=== PATIENT | female | born 1960 | race Caucasian/White ===

== ENCOUNTER 2017-10-05 10:33 | Inpatient (IN) | payer OTHER ==
[2017-08-23 09:32] VITALS: BMI 43.0
--- NOTE | 2017-08-23 10:12 | PAT Medication Instructions ---
Service Date Aug 23, 2017. Current Home Medication List Acetaminophen (Tylenol), 1,000 MG PO PRN Captopril (Capoten), 25 MG PO QAM Cyclosporine (Ophth) (Restasis), 1 DROP OP BID Diclofenac (Voltaren), 75 MG PO BID Levothyroxine Sodium (Synthroid), 225 MCG PO QAM Metformin Hcl (Glucophage), 500 MG PO BID Probiotic Product (Probiotic), 1 TAB PO QAM [Spironlactone Hctz], 1 TAB PO BID Medication Instructions For Your Scheduled Surgery - Check with surgeon for instructions: Diclofenac (Voltaren), 75 MG PO BID - Hold the following medications 48 hours prior to surgery: Metformin Hcl (Glucophage), 500 MG PO BID - Hold the following medications the morning of surgery: Captopril (Capoten), 25 MG PO QAM Probiotic Product (Probiotic), 1 TAB PO QAM [Spironlactone Hctz], 1 TAB PO BID - Take the following medications the morning of surgery with a sip of water: Levothyroxine Sodium (Synthroid), 225 MCG PO QAM Cyclosporine (Ophth) (Restasis), 1 DROP OP BID Acetaminophen (Tylenol), 1,000 MG PO PRN (if needed) - Take the following medications as scheduled the night before surgery: [Spironlactone Hctz], 1 TAB PO BID Cyclosporine (Ophth) (Restasis), 1 DROP OP BID Acetaminophen (Tylenol), 1,000 MG PO PRN (if needed) If you have any questions please call us at [phone] or [phone] or [phone]
--- NOTE | 2017-08-23 10:57 | DIAGNOSTIC IMAGING REPORT ---
CHEST PREADMISSION(PA/LAT) CLINICAL HISTORY: Preoperative chest COMPARISON STUDY: No previous studies for comparison. FINDINGS: The heart is mildly enlarged. There is mild interstitial thickening. There is no lobar consolidation. There are no pleural effusions.[ IMPRESSION: Cardiomegaly and mild interstitial thickening of uncertain chronicity. Electronically signed by: Milan Muhammad M.D. 08/23/2017 10:56 AM Dictated Date/Time: 08/23/2017 10:55 AM
[2017-08-23 11:25] LABS: BASO % 0.2 %; BASO ABS # 0.02 K/uL (0-0.2); COMPLETE YES; EOS % 1.4 %; HEMATOCRIT 37.9 % (37-47); IG% 0.3 %; LYMPH ABS # 1.83 K/uL (1.2-3.4); MEAN CELL VOLUME 87.1 fL (80-100); MEAN CORPUSCULAR HEMOGLOBIN 28.7 pg (25-34); MEAN PLATELET VOLUME 10.5 fL (7.4-10.4); MONO % 4.9 %; NEUT % 73.2 %; PLATELET COUNT 318 K/uL (130-400); RED BLOOD COUNT 4.35 M/uL (4.2-5.4); WHITE BLOOD COUNT 9.13 K/uL (4.8-10.8)
[2017-08-23 11:36] LABS: PROTHROMBIN TIME (PATIENT) 10.7 SECONDS (9.0-12.0)
[2017-08-23 11:37] LABS: ESTIMATED AVERAGE GLUCOSE 146 mg/dl; HA1C FLAG Normal (Normal)
[2017-08-23 11:38] LABS: BUN/CREATININE RATIO 28.4 (10-20); CALCIUM 9.6 mg/dl (8.5-10.1); CREATININE 0.64 mg/dl (0.60-1.20)
--- NOTE | 2017-10-01 22:40 | HISTORY & PHYSICAL EXAMINATION ---
DATE OF ADMISSION: 10/05/2017 CHIEF COMPLAINT: Bilateral knee pain and discomfort, left side greater than right. HISTORY OF PRESENT ILLNESS: A 57-year-old female who has been a long-term patient of mine who presents for surgical treatment of her left knee today. She has got very long history of bilateral knee pain and discomfort, left side greater than right. I have been seen over the years and put shots in her knees. This has become less successful over time. She has been putting off having her knees replaced, but feels like she really needs to do it. She has become more debilitated by her pain. She has pain with every step. Cannot walk any significant distance. PAST MEDICAL HISTORY: 1. Hypertension. 2. Sleep apnea with CPAP machine. 3. Hypothyroidism. 4. Obesity with a BMI of 43. PAST SURGICAL HISTORY: Includes: 1. Hernia repair. 2. . 3. Cholecystectomy. 4. Total hysterectomy. ALLERGIES: BACTRIM AND SULFA. CURRENT MEDICINES: Include: 1. Captopril 25 mg a day. 2. Synthroid 225 mcg a day. 3. Metformin 50 mg twice a day. 4. Voltaren 75 mg a day. 5. Restasis eyedrops twice a day. 6. Refresh eye drops once a day. 7. Spironolactone/hydrochlorothiazide 25/25 twice a day. SOCIAL HISTORY: A 57-year-old female. She is from [facility]. Does not smoke. No alcohol intake. FAMILY HISTORY: Significant for colon cancer, breast cancer. REVIEW OF SYSTEMS: Significant for diabetes. Denies any current chest pain or shortness of breath. No history of DVT or PE. PHYSICAL EXAMINATION: GENERAL: Reveals this is a healthy pleasant, middle-aged female. She looks to be in reasonably good health. HEENT: Benign. NECK: Supple. No lymphadenopathy. LUNGS: Clear to auscultation. HEART: Has a regular rate and rhythm. ABDOMEN: Soft, nontender, nondistended. EXTREMITIES: Grossly neurovascularly intact except as follows: Examination of both knees reveals the patient walks with a waddling gait. She has varus alignment of both knees with a varus thrust with weightbearing. Moderate soft tissue envelop bilaterally. She has got small knee effusions bilaterally. Range of motion about 5-115 and symmetric. No pain with hip motion on either side. X-RAYS: X-rays of both knees were reviewed. It shows advanced left bilateral knee DJD, left side a bit worse than the right. She has complete loss of her medial joint space. She has osteophytes of medial femoral condyle and medial tibial plateau. ASSESSMENT: A 57-year-old female with advanced bilateral knee degenerative joint disease, left side more symptomatic than the right. She has failed conservative treatment and would like to have her left knee replaced. PLAN: We will take her to the operating room and do a left total knee replacement. The risks and benefits of this procedure were explained to the patient including but not limited to DVT, PE, , infection, neurological injury, vascular injury, bleeding problem, pain, limited range of motion, stiffness, failure to relieve symptoms, incomplete relief of symptoms, need for further surgery in the future, fracture, leg length inequality, nerve palsy, etc. The patient understands and desires to proceed. Informed consent was obtained. We did talk about holding her metformin 2 days preop as well as the diclofenac. She will hold the captopril the morning of surgery. We will likely use insulin sliding scale coverage in the hospital. We did talk her about bringing her CPAP machine as well. She is planning to be discharged to home with home health likely. SHIRLEY
[2017-10-05] VITALS (9 sets, daily range): BP systolic 134–154; BP diastolic 75–100; PULSE 80–92; TEMP 36.4–36.8; O2SAT 94–97; Ht 165.1 cm; Wt 117.6 kg
[~2017-10-05] VITALS: Ht 165.1 cm; Wt 117.6 kg
[~2017-10-05 10:33] MED LIST: ACET-1256 PO; ACETAMINOPHEN 500 MG TAB PO SCH; BUPIVACAINE 0.25% 30 ML VIAL ONE; BUPIVACAINE 0.5 % 5 MG/1 ML PF 10ML VIAL ONE; BUPIVACAINE LIPOSOME 266 MG, BUPIVACAINE/EPINEPHRINE INJ 50 ML, SODIUM CHLORIDE 0.9% PF... INFIL SCH; CAPT1TAB38 PO; CEFAZOLIN 3000MG IV PUSH 15 ML IV SCH; CYCL0.052 OP; DICL-201 PO; FAMOTIDINE 20 MG TAB PO SCH; GABAPENTIN 300 MG CAP PO SCH; GLC/500 PO; LACTATED RINGER'S 1000ML 1,000 ML IV SCH; LACTATED RINGER'S 1000ML 500 ML IV ONE; LACTATED RINGER'S 1000ML IV SCH; LEVO200T PO; METOCLOPRAMIDE HCL 10 MG TAB PO SCH; MISCCAP80 PO; SCOPOLAMINE 1.5 MG TDSY TD SCH; SPIRONLACTONE HCTZ PO; TRANEXAMIC ACID INJ 1,000 MG in SYRINGE 0 ML IV SCH
--- NOTE | 2017-10-05 10:55 | History & Physical Bridge Note ---
H&P Re-Evaluation Bridge Note: I have examined the patient, reviewed the History & Physical and in the interval since the performance of the History & Physical I have noted the following changes of clinical significance: Patient would like right knee injected while under anesthesia. We will inject right knee in operating room.
[2017-10-05] MEDS ORDERED: ONDANSETRON INJ 2 MG/ML 2 ML VIAL IV PRN ×2 (11:15→15:30)
[2017-10-05] MEDS ORDERED: EpHEDrine SULFATE INJ 50 MG/ML AMP IV PRN (11:15)
[2017-10-05] MEDS ORDERED: ATROPINE SULFATE 0.1 MG/ML 5ML SYR IV PRN (11:15)
[2017-10-05] MEDS ORDERED: LIDOCAINE HCL 2% 2 ML VIAL (20MG/ML) ONE (12:35)
[2017-10-05] MEDS ORDERED: PROPOFOL IV EMULSION 10 MG/ML 20 ML VIAL IV ONE (12:35)
[2017-10-05] MEDS ORDERED: FENTANYL CITRATE INJ 50 MCG/1 ML 2 ML VIAL ONE (12:36)
[2017-10-05] MEDS ORDERED: MIDAZOLAM HCL 1 MG/ML 2ML VIAL ONE (12:36)
[2017-10-05] MEDS ORDERED: SODIUM CHLORIDE 0.9% PF 50 ML VIAL ONE (13:21)
[2017-10-05] MEDS ORDERED: BUPIVACAINE/EPINEPHRINE 0.25% 1:200,000 30 ML VIAL ONE (13:21)
[2017-10-05] MEDS ORDERED: BACITRACIN 50000 UNIT VIAL ONE (13:21)
[2017-10-05] MEDS ORDERED: BUPIVACAINE 0.5 % 5 MG/1 ML MPF 30ML VIAL ONE (13:22)
[2017-10-05] MEDS ORDERED: BUPIVACAINE LIPOSOME 1/3% 266 MG/20 ML VIAL INFIL ONE (13:22)
[2017-10-05] MEDS ORDERED: BUPIVACAINE 0.5 % 5 MG/1 ML MPF 30ML VIAL INFIL ONE (14:00)
[2017-10-05] MEDS ORDERED: BETAMETH SOD PHOS/ACETATE IA 6 MG/ML IM ONE (14:00)
[2017-10-05] MEDS ORDERED: KETAMINE HCL INJ 50 MG/ML 10 ML VIAL ONE (14:12)
[2017-10-05] MEDS ORDERED: ONDANSETRON INJ 2 MG/ML 2 ML VIAL ONE (14:36)
--- NOTE | 2017-10-05 15:25 | [facility] Post Operative Brief Note ---
Immediate Operative Summary Operative Date Oct 05, 2017. Pre-Operative Diagnosis Bilateral knee degenerative joint disease Post-Operative Diagnosis same as pre-operative Procedure(s) Performed Left Total Knee Arthroplasty and Right Knee Injection Surgeon Dr. Yusuf Ann Dbas Surgeon(s) SAYRA Toscano Estimated Blood Loss 50 ml Findings Bilateral Knee DJD Fluids (cc crystalloids) 1100 cc Specimens Permanent Specimen A: Left knee bone and tissue Drains None Anesthesia Spinal Complication(s) None Disposition Recovery Room / PACU
[2017-10-05] MEDS ORDERED: GLUCOSE 10 TABS/TUBE PO PRN (15:30)
[2017-10-05] MEDS ORDERED: MoRPHine SULFATE 2 MG/ML CARP IV PRN (15:30)
[2017-10-05] MEDS ORDERED: ALUMINUM/MAGNESIUM/SIMETH (MAALOX MAX) 30 ML UDC PO PRN (15:30)
[2017-10-05] MEDS ORDERED: DEXTROSE 50% 50 ML SYR IV PRN (15:30)
[2017-10-05] MEDS ORDERED: MAGNESIUM HYDROXIDE SUSP 30 ML UDC PO PRN (15:30)
[2017-10-05] MEDS ORDERED: BISACODYL 10 MG SUPP PR PRN (15:30)
[2017-10-05] MEDS ORDERED: GLUCOSE 40% GEL 15 GM TUBE PO PRN (15:30)
[2017-10-05] MEDS ORDERED: DiphenhydrAMINE HCL 50 MG/ML VIAL IV PRN (15:30)
[2017-10-05] MEDS ORDERED: METOCLOPRAMIDE HCL INJ 5 MG/ML 2 ML VIAL IV PRN (15:30)
[2017-10-05] MEDS ORDERED: ZOLPIDEM TARTRATE 5 MG TAB PO PRN (15:30)
[2017-10-05] MEDS ORDERED: GLUCAGON FOR INJ 1 MG VIAL SQ PRN (15:30)
--- NOTE | 2017-10-05 15:49 | DIAGNOSTIC IMAGING REPORT ---
L KNEE 1 OR 2 VIEWS ROUTINE HISTORY: 57 years-old Female PACU LT KNEE left knee arthroplasty. Degenerative joint disease. COMPARISON: Left knee radiographs 08/23/2017 TECHNIQUE: Portable AP and lateral views of the left knee FINDINGS: Postoperative changes compatible with left knee total joint arthroplasty and patellar resurfacing. No evidence of periprostatic fracture or malalignment. Ventral skin goyo are noted in addition to a surgical drain and expected postsurgical soft tissue swelling and deep tissue air. IMPRESSION: Status post left knee total joint arthroplasty and patellar resurfacing without complication. The above report was generated using voice recognition software. It may contain grammatical, syntax or spelling errors. Electronically signed by: Arnav Varela M.D. 10/05/2017 3:47 PM Dictated Date/Time: 10/05/2017 3:46 PM
[2017-10-05] MEDS ORDERED: RESTASIS~ORDER AWAITING ACTION SCH (16:00)
[2017-10-05] MEDS: CHECK SCOPOLAMINE PATCH PLACEMENT SCH ×2 (16:00→23:28)
--- NOTE | 2017-10-05 16:28 | Anesthesiology Progress Note ---
Anesthesia Post Op Note Date & Time Oct 05, 2017 at 16:28 Vital Signs Pain Intensity: 0 Vital Signs Past 12 Hours Date Time Temp Pulse Resp B/P (MAP) Pulse Ox O2 Delivery O2 Flow Rate FiO2 10/05/17 16:07 83 16 10/05/17 16:07 83 16 93 10/05/17 16:06 139/70 10/05/17 16:02 81 16 95 10/05/17 16:02 81 16 10/05/17 16:01 137/71 10/05/17 15:58 84 23 95 10/05/17 15:58 83 23 10/05/17 15:56 124/76 10/05/17 15:53 82 19 10/05/17 15:53 81 19 94 10/05/17 15:51 113/75 10/05/17 15:48 83 19 10/05/17 15:48 84 19 96 10/05/17 15:47 80 14 98 10/05/17 15:47 81 14 10/05/17 15:46 151/71 10/05/17 15:42 83 19 98 10/05/17 15:42 83 19 10/05/17 15:41 134/70 10/05/17 15:37 82 19 98 10/05/17 15:37 83 19 10/05/17 15:36 129/67 10/05/17 15:33 127/71 10/05/17 15:32 36.6 86 16 127/71 98 Oxymask 10 10/05/17 15:32 87 27 10/05/17 15:32 87 27 98 10/05/17 11:02 36.6 80 20 151/92 95 Room Air Notes Mental Status: alert / awake / arousable, participated in evaluation Pt Amnestic to Procedure: Yes Nausea / Vomiting: adequately controlled Pain: adequately controlled Airway Patency, RR, SpO2: stable & adequate BP & HR: stable & adequate Hydration State: stable & adequate Neuraxial Anesthesia: was administered, sensory block is resolving Anesthetic Complications: no major complications apparent
[2017-10-05] MEDS: FERROUS GLUCONATE 324 MG TAB PO SCH (17:55)
[2017-10-05] MEDS: SODIUM CHLORIDE 0.9% 1000ML 1,000 ML IV SCH ×2 (17:55→23:27)
[2017-10-05] MEDS: SPIRONOLACTONE/HCTZ 25-25 PO SCH (18:01)
[2017-10-05] MEDS: INSULIN HUMAN REGULAR SC SCH ×2 (18:04→22:00)
--- NOTE | 2017-10-05 18:06 | PROGRESS NOTE ---
DATE: 10/05/2017 SUBJECTIVE: A 57-year-old white female postop from a left knee replacement. She is doing well. Not having any pain in the hip. No significant sensory or motor function in the leg. No chest pain or shortness of breath. Not feeling dizzy or lightheaded. OBJECTIVE: VITAL SIGNS: Temperature is 36.5. Vital signs stable. GENERAL: Reveals a healthy, pleasant middle-aged female. She is sitting up in bed and talking to her daughter. She looks pretty comfortable. LUNGS: Clear to auscultation. HEART: Regular rate and rhythm. ABDOMEN: Soft, nontender, nondistended. EXTREMITIES: Grossly neurovascularly intact except as follows: Examination of the left leg reveals the dressing to be clean, dry and intact. Leg is well aligned. She has no significant motor or sensory function yet. She has brisk refill with good distal pulse. X-RAYS: X-rays of the left knee from recovery room reviewed. She has a left cemented posterior total knee arthroplasty. Components look to be in good position. No signs of problems. ASSESSMENT: A 57-year-old white female postop from a left knee replacement, doing well. Pain is controlled. Spinal still in effect. PLAN: 1. DVT prophylaxis including thigh-high TEDs, SCDs, and aspirin twice a day. 2. PT/OT. Weightbearing as tolerated. Left total knee protocol. 3. Pain control. Doing well with current pain regimen. 4. IV antibiotics x24 hours. 5. Disposition: Plan to discharge to home. She is going to do outpatient therapy once adequately recovered.
[2017-10-05] MEDS: KETOROLAC TROMETHAMINE 30 MG/ML VIAL IV. SCH ×2 (18:26→23:28)
[2017-10-05] MEDS: OXYCODONE HCL IR 5 MG TAB (IMMEDIATE RELEASE) PO PRN ×2 (18:38→23:38)
[2017-10-05] MEDS ORDERED: TRANEXAMIC ACID INJ 1,000 MG in SODIUM CHLORIDE 0.9% 100ML 100 ML IV SCH (19:30)
[2017-10-05] MEDS: TAPENTADOL ER 50 MG TABCR PO SCH (21:36)
[2017-10-05] MEDS: CycloSPORINE 0.05% 0.4 ML 30 UDV/BOX OP SCH (21:36)
[2017-10-05] MEDS: CEFAZOLIN IV 2,000 MG in SYRINGE 0 ML IV SCH (21:36)
[2017-10-05] MEDS: ASPIRIN 325 MG ECTAB PO SCH (21:37)
[2017-10-05] MEDS: ACETAMINOPHEN 500 MG TAB PO SCH (21:37)
[2017-10-05] MEDS: SENNA 8.6 MG TAB PO SCH (21:38)
[2017-10-05] MEDS: DOCUSATE SODIUM 100 MG CAP PO SCH (21:39)
[2017-10-05] MEDS ORDERED: NURSING VERBAL MED ORDER ONE (22:15)
--- NOTE | 2017-10-05 22:26 | OPERATIVE REPORT ---
DATE OF OPERATION: 10/05/2017 SURGEON: Dr. Yusuf Ann. SUPPLIER QUALITY ENGINEERING MANAGER: SAYRA Toscano PREOPERATIVE DIAGNOSIS: Bilateral knee degenerative joint disease. POSTOPERATIVE DIAGNOSIS: Same. PROCEDURE PERFORMED: 1. Right knee injection under anesthesia. 2. Left cemented posterior stabilized total knee arthroplasty. COMPLICATIONS: None. ESTIMATED BLOOD LOSS: 50 mL FLUID REPLACEMENT: 1400 mL crystalloid fluid replacement. TOURNIQUET TIME: 56 minutes at 300 mmHg. ANESTHESIA: Spinal with adductor canal block. DRAINS: None. SPECIMENS: Left knee sent for pathology. OPERATIVE INDICATIONS: The patient is a 57-year-old female, who has had a long history of bilateral knee pain and discomfort, which we treated over the years with conservative management. This became less successful over time. She became more and more debilitated by her disease. She was having trouble even getting around. She has a severe limp. She did not get any real response to injection treatment anymore. She elected to proceed with left total knee replacement and wanted her right knee injected under anesthesia. OPERATIVE FINDINGS: Operative findings revealed advanced left knee DJD. She had extensive grade 4 changes of the medial femoral condyle and medial tibial plateau. She had a varus deformity of the knee with a 10-degree flexion contracture and a [id number]-[id number] effusion. OPERATIVE IMPLANTS: Operative implants consisted of: 1. Biomet Vanguard size 65 left posterior stabilized femoral component. 2. Biomet size 71 tibial tray. 3. A 12-mm posterior stabilized polyethylene insert. 4. A 31 x 8 all poly patella. OPERATIVE PROCEDURE: The patient taken to the operating room, identified and placed on the operating table in supine position. All contact areas were appropriately padded. IV antibiotics were provided by anesthesia team. A spinal anesthetic and adductor canal block had been provided in the holding area. A Stone catheter was placed in a sterile fashion. A left thigh tourniquet was then placed. Attention was then drawn to the right knee. The right knee was prepped with alcohol, 2 mL of Celestone and 8 mL of Marcaine were injected in the right knee in a sterile fashion. A 4x4 gauze was then placed and a HELDER stocking was placed over the top of this. The left leg was then prepped and draped in the usual sterile fashion. The left leg was then elevated and exsanguinated using Esmarch and tourniquet was placed at 300 mmHg. An anterior approach of the left knee was then performed through a longitudinal incision centered over the patella. Sharp dissection was carried out through the subcutaneous tissues down to the level of the extensor mechanism. A medial parapatellar arthrotomy incision was made. Some subperiosteal dissection was carried out medially to the fat pad and resected from beneath the patellar tendon. The lateral patellofemoral ligament was released. The patella was everted and the knee was flexed. The osteophytes were taken off the distal femur. The ACL and PCL were then released from the distal femur and the tibia subluxated anteriorly. The external tibial alignment jig was then placed in the anterior face of the tibia and adjusted 14 mm medially. A proximal tibial cut was made to remove about a millimeter or two of bone from the most deficient aspect of the medial tibial plateau. Some osteophytes were taken off medial and posteromedially. The tibia size was a size 71. Attention was then drawn to the femur. The distal was entered with a sharp drill. The intramedullary canal was suctioned. A left 5 degree valgus cutting guide was placed. A distal cutting block was pinned in place. A distal femoral cut was made to take an additional 3 mm of bone off the distal femur. The femur was then sized to a size 65. We did downsize this slightly. The AP cutting block was pinned parallel to the epicondylar axis which was 6 degrees of external rotation. The anterior cut, anterior chamfer, posterior cut, posterior chamfer cuts were made. A box cutting guide was placed and adjusted slightly lateral and the box cut was made. The knee was flexed. The remnants of the medial and lateral menisci were excised. The osteophytes were taken off the posterior aspect of the femur. A trial femoral component was placed. The tibial tray was pinned in maximum external rotation and the drill and stem punch were used to create a defect in proximal tibia for the tibial tray. The knee was then trialed and the 12-mm insert fit most appropriately. Attention was then drawn to the patella. The patella was cleaned of all soft tissues. Patella thickness measured 20 mm in thickness, it was cut down to 13. It was sized to a size 31 patella. Lug holes were drilled for a 31 patella. Lateral osteophyte was removed. Patella button was placed. The knee was taken through range of motion and the patella tracked nicely with no thumbs test. Attention was then drawn toward placement of permanent components. All trial components were removed. A bone plug was placed in the distal femur to limit blood loss. A double batch of Palacos G cement was mixed. A left size 65 posterior stabilized femoral component, a size 71 tibial tray, a 12-mm posterior stabilized polyethylene insert, and a 31 x 8 all poly patella were then cemented in place. The knee was brought out into full extension until the cement hardened. A final cement check was then performed. Pericapsular tissues were injected with a total of 100 mL of a combination of 20 mL of Exparel, 30 mL of normal saline, 50 mL of 0.25% Marcaine with epinephrine. The patient did receive 1 gram of tranexamic acid. The tourniquet was then let down for a final target time of 56 minutes. Hemostasis was assured using electrocautery. The wound was once again irrigated. The extensor mechanism was then closed with a combination of #1 PDS suture and #1 Vicryl suture in a [id number] fashion. The extensor mechanism was checked and found to be intact. The subcutaneous tissues were then closed with 2-0 Dexon suture in a buried interrupted fashion. The skin was closed skin goyo. The leg was then cleaned and dried and a sterile dressing of Xeroform, 4 x 4, sterile cast padding and Kd bandage were applied. The patient then transferred to the recovery room in stable condition. The patient tolerated the procedure with no complications. All needle and sponge counts were correct at the end of the operation. I attest to the content of the Intraoperative Record and any orders documented therein. Any exceptions are noted below. MTDD
[2017-10-06] VITALS (7 sets, daily range): BP systolic 104–138; BP diastolic 73–87; PULSE 70–83; TEMP 36.5–36.9; O2SAT 94–96
[2017-10-06] MEDS: LEVOTHYROXINE 112 MCG TAB PO SCH (03:52)
[2017-10-06] MEDS: CEFAZOLIN IV 2,000 MG in SYRINGE 0 ML IV SCH (05:47)
[2017-10-06] MEDS: KETOROLAC TROMETHAMINE 30 MG/ML VIAL IV. SCH ×3 (05:49→17:26)
[2017-10-06] MEDS: ACETAMINOPHEN 500 MG TAB PO SCH ×3 (05:50→21:58)
[2017-10-06] MEDS: CAPTOPRIL 25 MG TAB PO SCH (05:50)
[2017-10-06] MEDS: SODIUM CHLORIDE 0.9% 1000ML 1,000 ML IV SCH ×2 (05:53→12:47)
[2017-10-06] MEDS ORDERED: LEVOTHYROXINE 112 MCG TAB PO SCH (06:00)
[2017-10-06] MEDS ORDERED: MORP-157 PO (06:51)
[2017-10-06] MEDS ORDERED: FRRG PO (06:51)
[2017-10-06] MEDS ORDERED: ASPEC325 PO (06:51)
[2017-10-06] MEDS ORDERED: RXC5 PO (06:51)
[2017-10-06] MEDS ORDERED: ACET-24 PO (06:51)
[2017-10-06] MEDS ORDERED: ONDA4TAB65 PO (06:51)
--- NOTE | 2017-10-06 06:53 | Discharge Instructions ---
Discharge Instructions Date of Service Oct 06, 2017. Admission Reason for Admission: Left Knee Degenerative Joint Disease Discharge Discharge Diagnosis / Problem: Left Knee Replacement Discharge Goals Goal(s): Decrease discomfort, Improve function, Increase independence, Improve disease control Activity Recommendations Activity Limitations: per Instructions/Follow-up section Weightbearing Status: Left weightbearing . Instructions / Follow-Up Instructions / Follow-Up ACTIVITY RECOMMENDATIONS: Physical Therapy: * You will go to physical therapy three times each week for four to six weeks after your surgery in order to regain your knee range of motion and to retrain your knee to work properly. * It is just as important to make sure you are getting your knee perfectly straight as it is to regain your knee bend. * Taking a pain pill an hour before therapy can help you have a more productive and comfortable therapy session. Home Exercise: * You were shown a series of exercises (heel props, heel slides, etc.) in the hospital. Do these exercises three to four times each day including the exercises you were shown in physical therapy. Walking: * Get up and walk several times each day. For the first four weeks, try not to stand or walk for more than one hour at a time. If you do stand or walk for more than one hour, you will not hurt anything, but your knee and leg will likely swell. * As you feel comfortable, you may change from the walker or crutches to a cane and then to independent walking. MEDICATIONS: New Medicine: * You will likely be taking one or more of these medications: 1. MS Contin - A long-acting pain medication. Take 1 tablet twice a day for the first ten days to decrease your baseline level of pain. 2. Oxycodone - A quick and shorter-acting pain medication. Take one to two tablets every four to six hours to lessen your pain. 3. Iron Sulfate - Take three times each day for the month after surgery to help you replace the blood lost during surgery. 4. Aspirin - Thins your blood to lessen the chance of forming a blood clot. * The most common side effects of pain medicine and iron are nausea and constipation. If nausea or constipation is too much of a problem or if you have any questions about your new medicines or doses, call [facility] at [phone]. We will try to help you manage these issues. VERY IMPORTANT TO READ AND REVIEW" Pain: * The immediate post-operative period after knee replacement surgery is often quite painful. * You are given a prescription for pain medicine. You should take it, as directed, when you need it, especially before physical therapy and before going to bed. Pain that interferes with sleep is very common and can last several months. * You will likely need pain medicine for the first four to six weeks. It will not stop all of the pain. The pain will lessen and as you feel better, you may change to milder pain medicine such as Tylenol. * The most common side effects of pain medicine are nausea and constipation, so don't take more than you need. SPECIAL CARE INSTRUCTIONS: TEDs/Elastic Stockings: * The white elastic stockings help limit swelling and prevent blood clots from forming in your legs. The more you wear them, the more they work. * Wear them for six weeks after knee replacement surgery and four weeks after partial knee replacement. Prevention of Infection: * Take antibiotics one hour before any dental cleaning, dental work, urological procedure, gastrointestinal procedure or any invasive surgery in order to prevent your new joint from getting infected. * You may get the antibiotics from the doctor performing the procedure or you may call our office at before and we will call in a prescription to the pharmacy of your choice. Things to Watch For: * Drainage from the incision site that occurs more than one week after your surgery. * Severely increased knee/leg pain or swelling. * Increased redness at the incision site. * Fever above 102 degrees Fahrenheit. * Unusual chest pain or shortness of breath. * Unusual pain or burning with urination. Call [facility] at with any of the above problems or if you have any questions about your medicines or recovery. FOLLOW UP VISIT: Make an appointment to see your doctor for approximately two weeks after surgery for a progress check and staple removal by calling the office at . Current Hospital Diet Patient's current hospital diet: Diabetes Type 2 Diet Discharge Diet Recommended Diet: Diabetes Type 2 Diet Procedures Procedures Performed: Left Total Knee Arthroplasty and Right Knee Injection Pending Studies Studies pending at discharge: no Laboratory Results Hemoglobin A1c Test 08/23/17 10:25 Range/Units Estimated Average Glucose 146 mg/dl Hemoglobin A1c 6.7 H 4.5-5.6 % Medical Emergencies . Who to Call and When: Medical Emergencies: If at any time you feel your situation is an emergency, please call 911 immediately. . Non-Emergent Contact Non-Emergency issues call your: Surgeon . "Provider Documentation" section prepared by Yusuf Ann. . VTE Core Measure Inpt VTE Proph given/why not?: Other Anticoagulation, T.E.D. Stockings, SCD's
[2017-10-06 06:54] LABS: HEMATOCRIT 35.6 % (37-47); MEAN CELL VOLUME 86.2 fL (80-100); MEAN CORPUSCULAR HEMOGLOBIN 29.3 pg (25-34); MEAN PLATELET VOLUME 9.4 fL (7.4-10.4); PLATELET COUNT 318 K/uL (130-400); RED BLOOD COUNT 4.13 M/uL (4.2-5.4); WHITE BLOOD COUNT 15.97 K/uL (4.8-10.8)
[2017-10-06 07:22] LABS: BUN/CREATININE RATIO 29.2 (10-20); CALCIUM 8.6 mg/dl (8.5-10.1); CREATININE 0.77 mg/dl (0.60-1.20); POTASSIUM 3.8 mmol/L (3.5-5.1)
[2017-10-06] MEDS ORDERED: INFLUENZA VIRUS QUAD VACCINE 0.5 ML SYR IM. ONE (08:00)
[2017-10-06] MEDS ORDERED: INFLUENZA ADMINISTRATION CHARGE ONE (08:00)
[2017-10-06] MEDS: CHECK SCOPOLAMINE PATCH PLACEMENT SCH ×2 (08:03→15:32)
[2017-10-06] MEDS: INSULIN HUMAN REGULAR SC SCH ×4 (08:10→21:03)
[2017-10-06] MEDS: SPIRONOLACTONE/HCTZ 25-25 PO SCH ×2 (08:15→17:26)
[2017-10-06] MEDS: FERROUS GLUCONATE 324 MG TAB PO SCH ×3 (08:15→17:26)
[2017-10-06] MEDS: CycloSPORINE 0.05% 0.4 ML 30 UDV/BOX OP SCH ×2 (08:16→21:01)
[2017-10-06] MEDS: ASPIRIN 325 MG ECTAB PO SCH ×2 (08:16→21:00)
[2017-10-06] MEDS: DOCUSATE SODIUM 100 MG CAP PO SCH ×2 (08:16→21:00)
[2017-10-06] MEDS: TAPENTADOL ER 50 MG TABCR PO SCH ×2 (08:17→21:01)
[2017-10-06] MEDS: MULTIVITAMIN TAB PO SCH (08:17)
[2017-10-06] MEDS: PANTOprazole SOD 40 MG TAB PO SCH (08:18)
[2017-10-06] MEDS ORDERED: NON-FORMULARY MEDICATION (Probiotic Product (Probiotic) 1 TAB) PO SCH (09:00)
[2017-10-06] MEDS ORDERED: CAPTOPRIL 25 MG TAB PO SCH (09:00)
[2017-10-06] MEDS: OXYCODONE HCL IR 5 MG TAB (IMMEDIATE RELEASE) PO PRN ×3 (09:43→19:23)
--- NOTE | 2017-10-06 13:21 | Anesthesiology Progress Note ---
Anesthesia Post Op Note Date & Time Oct 06, 2017 at 13:20 Vital Signs Vital Signs Past 12 Hours Date Time Temp Pulse Resp B/P (MAP) Pulse Ox O2 Delivery O2 Flow Rate FiO2 10/06/17 12:01 36.9 73 18 133/86 (102) 96 Room Air 10/06/17 09:44 94 Room Air 10/06/17 08:00 36.7 70 16 104/73 (83) 94 Room Air 10/06/17 07:38 Room Air 10/06/17 03:06 36.5 78 14 138/87 (104) 94 Room Air Notes Mental Status: alert / awake / arousable, participated in evaluation Pt Amnestic to Procedure: Yes Nausea / Vomiting: adequately controlled Pain: adequately controlled Airway Patency, RR, SpO2: stable & adequate BP & HR: stable & adequate Hydration State: stable & adequate Neuraxial Anesthesia: sensory block resolved Anesthetic Complications: no major complications apparent
--- NOTE | 2017-10-06 14:20 | PROGRESS NOTE ---
DATE: 10/06/2017 SUBJECTIVE: A 57-year-old white female postop day 1 from a left knee replacement and a right knee injection. She is doing pretty well. Pain is very controlled in bed. She rates it about 4 at worst. When she is walking, she says it is 15/10. No chest pain or shortness of breath. Not feeling dizzy or lightheaded. OBJECTIVE: VITAL SIGNS: Temperature is 36.9. Vital signs stable. GENERAL: Physical examination reveals a pleasant, middle-aged female. She is sitting up in bed and talking to her family. She looks pretty comfortable. EXTREMITIES: Examination of left leg reveals the dressing to be in place. A little bit of bloody drainage on the dressing. She can dorsiflex and plantarflex her foot appropriately. She is neurologically intact. Good distal pulses. LABORATORY DATA: Hemoglobin 12.1, hematocrit 35.6, and white cell count 15.97. Electrolytes are stable. ASSESSMENT: A 57-year-old white female, diabetic postop day 1 from a left knee replacement and doing pretty well. Pain is reasonably well controlled. She is neurologically intact. The block is worn off. PLAN: 1. DVT prophylaxis including thigh-high TEDs, SCDs, and aspirin twice a day. 2. PT/OT. She can weightbear as tolerated. Left total knee protocol. 3. Pain control. Doing reasonably well with current pain regimen. 4. Diabetes management. She should continue insulin sliding scale coverage. 5. Disposition: She is planning to be discharged home and do outpatient therapy once adequately recovered. SHIRLEY
[2017-10-06] MEDS: SENNA 8.6 MG TAB PO SCH (21:00)
[2017-10-07] MEDS: KETOROLAC TROMETHAMINE 30 MG/ML VIAL IV. SCH ×4 (00:32→14:12)
[2017-10-07] MEDS: LEVOTHYROXINE 112 MCG TAB PO SCH (03:06)
[2017-10-07] MEDS: ACETAMINOPHEN 500 MG TAB PO SCH ×2 (06:29→14:12)
[2017-10-07] MEDS: CAPTOPRIL 25 MG TAB PO SCH (06:30)
[2017-10-07 06:34] VITALS: BP 165/104
[2017-10-07 07:16] VITALS: BP 131/86; PULSE 74; TEMP 36.5; O2SAT 96
--- NOTE | 2017-10-07 07:20 | PROGRESS NOTE ---
DATE: 10/07/2017 SUBJECTIVE: A 57-year-old white female postop day 2 from a left knee replacement and right knee injection. She is doing well. Pain seems to be better today. No chest pain or shortness of breath. Not feeling dizzy or lightheaded. OBJECTIVE: VITAL SIGNS: Temperature is 36.6. Vital signs stable. GENERAL: Reveals a pleasant, middle-aged female. She is sitting up at her bedside chair and looks pretty comfortable. EXTREMITIES: Examination of the left leg reveals the dressing to be clean, dry and intact. Minimal drainage. Calf is soft and supple. She is neurologically intact. ASSESSMENT: A 57-year-old white female postop day 2 from a left knee replacement, doing pretty well. PLAN: 1. DVT prophylaxis including thigh-high TEDs, SCDs, and aspirin twice a day. 2. PT/OT. Weight bear as tolerated. Left total knee protocol. 3. Pain control. Doing well with current pain regimen. 4. Disposition: Plan to discharge to home. She is going to do outpatient therapy.
[2017-10-07] MEDS: CHECK SCOPOLAMINE PATCH PLACEMENT SCH ×2 (08:15)
[2017-10-07] MEDS: OXYCODONE HCL IR 5 MG TAB (IMMEDIATE RELEASE) PO PRN ×2 (08:22→15:19)
[2017-10-07] MEDS: TAPENTADOL ER 50 MG TABCR PO SCH (08:22)
[2017-10-07] MEDS: FERROUS GLUCONATE 324 MG TAB PO SCH ×2 (08:23→14:05)
[2017-10-07] MEDS: MULTIVITAMIN TAB PO SCH (08:23)
[2017-10-07] MEDS: PANTOprazole SOD 40 MG TAB PO SCH (08:23)
[2017-10-07] MEDS: CycloSPORINE 0.05% 0.4 ML 30 UDV/BOX OP SCH (08:24)
[2017-10-07] MEDS: INSULIN HUMAN REGULAR SC SCH ×2 (08:30→12:00)
[2017-10-07] MEDS: DOCUSATE SODIUM 100 MG CAP PO SCH (08:31)
[2017-10-07 08:56] VITALS: BP 129/71; PULSE 69
[2017-10-07 09:57] VITALS: BP 129/71; PULSE 69; TEMP 36.5; O2SAT 96
[2017-10-07] MEDS: SPIRONOLACTONE/HCTZ 25-25 PO SCH (10:25)
[2017-10-07] MEDS: ASPIRIN 325 MG ECTAB PO SCH (10:26)
== END 2017-10-07 16:00 | disposition home or self-care (01) | DRG 470 ==
LOC: C.ACU 10:33 → C.3E 10:45 → ENRESERV 15:45
PROVIDERS: ADMIT Orthopaedic Surgery Sports Medicine; ATTEND Orthopaedic Surgery Sports Medicine
PROC: 3E0U3BZ Introduction of Anesthetic Agent into Joints, Percutaneous Approach (ICD-10-PCS; principal; 2017-10-05 13:00)
PROC: 0SRD0J9 Replacement of Left Knee Joint with Synthetic Substitute, Cemented, Open Approach (ICD-10-PCS; principal; 2017-10-05 13:00)
DX: M17.0 Bilateral primary osteoarthritis of knee (principal); Z68.41 Body mass index [BMI] 40.0-44.9, adult; I10 Essential (primary) hypertension; E03.9 Hypothyroidism, unspecified; E66.9 Obesity, unspecified; G47.30 Sleep apnea, unspecified; E11.9 Type 2 diabetes mellitus without complications; Z79.84 Long term (current) use of oral hypoglycemic drugs; Z79.899 Other long term (current) drug therapy

== ENCOUNTER 2018-02-15 09:08 | Inpatient (IN) | payer OTHER ==
[2017-12-21 15:45] VITALS: Ht 165.1 cm; Wt 117.6 kg
--- NOTE | 2018-02-11 20:13 | HISTORY & PHYSICAL EXAMINATION ---
DATE OF ADMISSION: 02/15/2018 CHIEF COMPLAINT: Right knee pain. HISTORY OF PRESENT ILLNESS: A 57-year-old female who presents for surgical treatment of her right knee. She has a long history of bilateral knee pain and discomfort. She describes it has gotten worse over the past 10 years. She underwent a left knee replacement about 4 months ago and has done well from this. She has had excellent pain relief. She would like to have her right knee fixed. She continues to be debilitated by pain. She cannot walk because of her right knee. She has had shots in the knee initially but has not had any recently as they do not seem to help. PAST MEDICAL HISTORY: 1. Hypertension. 2. Sleep apnea, on CPAP machine. 3. Hypothyroidism. 4. Obesity with BMI of 43. PAST SURGICAL HISTORY: Include 1. Hernia repair. 2. . 3. Cholecystectomy. 4. Total hysterectomy. 5. Left total knee replacement done on October 05, 2017. ALLERGIES: BACTRIM WHICH CAUSED HIVES. SULFA CAUSES NAUSEA. MEDICATIONS: Current medications include 1. Captopril 25 mg a day. 2. Synthroid 225 mcg a day. 3. Metformin 50 mg twice a day. 4. Voltaren 75 mg twice a day. 5. Restasis eyedrops. 6. RepHresh Pro once a day. 7. Spironolactone/hydrochlorothiazide 25/25 twice a day. SOCIAL HISTORY: A 57-year-old female patient from [place]. She does not smoke. No alcohol intake. FAMILY HISTORY: Significant for colon cancer and breast cancer. REVIEW OF SYSTEMS: Significant for diabetes. Denies any chest pain, no shortness of breath. No history of DVT or PE. Her hemoglobin A1c is 6.7. No dysuria. PHYSICAL EXAMINATION: GENERAL: Exam shows pleasant middle-aged female, looks to be in reasonably good health. HEENT: Benign. NECK: Supple. No lymphadenopathy. LUNGS: Clear to auscultation. CARDIOVASCULAR: Heart has a regular rate and rhythm. ABDOMEN: Soft, nontender, nondistended. EXTREMITIES: Grossly neurovascularly intact except as follows: Examination of both knees reveals patient walks independently. Examination of the right knee reveals slight varus alignment. Moderate to large soft tissue envelope. Range of motion is 5 to 110. Pretty stiff knee. No instability. No pain with hip motion. Examination of the left knee reveals a well-healed incision. Knee alignment is anatomic. Range of motion is 0 to 110. No instability. IMAGING: X-ray of the right knee revealed advanced right knee DJD. She has complete loss of her medial joint space. She has subchondral sclerosis. She has tricompartment disease. ASSESSMENT: A 57-year-old white female, 4 months out from left knee replacement with advanced right knee degenerative joint disease. She has failed conservative treatment. She is happy with her left knee and would like to have her right knee replaced. PLAN: We will take her to the operating room for right total knee replacement. The risks and benefits of this procedure were explained to the patient that include but not limited to DVT, PE, , infection, neurological injury, vascular injury, bleeding, pain, limited range of motion, stiffness, failure to relieve symptoms, incomplete relief of symptoms, need for further surgery in the future, fracture, leg length inequality, nerve palsy, etc. The patient understands and desires to proceed. Informed consent was obtained. She will bring her CPAP machine to the hospital. She will have to hold her captopril on the morning of surgery and the metformin as well. She was able to be discharged to home and did outpatient therapy last time. Will plan on similar plan.
[2018-02-15] VITALS (7 sets, daily range): BP systolic 117–165; BP diastolic 67–99; PULSE 9–91; TEMP 36.4–36.8; O2SAT 95–100
[~2018-02-15] VITALS: Ht 165.1 cm; Wt 117.6 kg
[~2018-02-15 09:08] MED LIST changes: -ACET-1256 PO; +ATROPINE SULFATE 0.1 MG/ML 5ML SYR IV PRN; +CEFAZOLIN 2000MG IV PUSH 15 ML IV SCH; -CEFAZOLIN 3000MG IV PUSH 15 ML IV SCH; +CHOL1000 PO; +EpHEDrine SULFATE INJ 50 MG/ML AMP IV PRN; +FRRS300 PO; -GABAPENTIN 300 MG CAP PO SCH; -LACTATED RINGER'S 1000ML 500 ML IV ONE; +ONDANSETRON INJ 2 MG/ML 2 ML VIAL IV PRN; -TRANEXAMIC ACID INJ 1,000 MG in SYRINGE 0 ML IV SCH; +TRANEXAMIC ACID INJ 1,000 MG x 1 Bag Intra-Op IV SCH
[2018-02-15] MEDS ORDERED: MIDAZOLAM HCL 1 MG/ML 2ML VIAL ONE (09:27)
[2018-02-15] MEDS ORDERED: SODIUM CHLORIDE 0.9% PF 50 ML VIAL ONE (10:23)
[2018-02-15] MEDS ORDERED: BACITRACIN 50000 UNIT VIAL ONE (10:23)
[2018-02-15] MEDS ORDERED: BUPIVACAINE LIPOSOME 1/3% 266 MG/20 ML VIAL INFIL ONE (10:24)
[2018-02-15] MEDS ORDERED: EpINEphrine INJ 1MG/ML AMP 1 MG/ML AMP ONE (10:25)
[2018-02-15] MEDS ORDERED: BUPIVACAINE 0.25% 30 ML VIAL ONE ×2 (10:25→11:07)
[2018-02-15] MEDS ORDERED: VANCOMYCIN HCL 1000MG/20ML VIAL ONE (10:26)
--- NOTE | 2018-02-15 11:07 | History & Physical Bridge Note ---
H&P Re-Evaluation Bridge Note: I have examined the patient, reviewed the History & Physical and in the interval since the performance of the History & Physical I have noted the following changes of clinical significance: No changes noted
[2018-02-15] MEDS ORDERED: ONDANSETRON INJ 2 MG/ML 2 ML VIAL ONE (11:51)
[2018-02-15] MEDS ORDERED: LIDOCAINE HCL 2% 2 ML VIAL (20MG/ML) ONE (11:51)
[2018-02-15] MEDS ORDERED: PROPOFOL IV EMULSION 10 MG/ML 20 ML VIAL IV ONE (11:51)
--- NOTE | 2018-02-15 12:59 | [facility] Post Operative Brief Note ---
Immediate Operative Summary Operative Date Feb 15, 2018. Pre-Operative Diagnosis Advanced right knee degenerative joint disease Post-Operative Diagnosis Same as preop Procedure(s) Performed Right total knee arthroplasty Surgeon Dr. Ann Grain Shipper Surgeon(s) Aubrie Lara PA-C Estimated Blood Loss 50 cc Findings Consistent with Post-Op Diagnosis Fluids (cc crystalloids) 1000 cc Specimens A: right knee bone and tissue Drains None Anesthesia Type MAC Spinal Regional Complication(s) none Disposition Accompanied Pt To Recover: no Disposition: Recovery Room / PACU
[2018-02-15] MEDS ORDERED: ZOLPIDEM TARTRATE 5 MG TAB PO PRN (13:00)
[2018-02-15] MEDS ORDERED: BISACODYL 10 MG SUPP PR PRN (13:00)
[2018-02-15] MEDS ORDERED: GLUCOSE 10 TABS/TUBE PO PRN (13:00)
[2018-02-15] MEDS ORDERED: ONDANSETRON INJ 2 MG/ML 2 ML VIAL IV PRN (13:00)
[2018-02-15] MEDS ORDERED: METOCLOPRAMIDE HCL INJ 5 MG/ML 2 ML VIAL IV PRN (13:00)
[2018-02-15] MEDS ORDERED: DEXTROSE 50% 50 ML SYR IV PRN (13:00)
[2018-02-15] MEDS ORDERED: DiphenhydrAMINE HCL 50 MG/ML VIAL IV PRN (13:00)
[2018-02-15] MEDS ORDERED: ALUMINUM/MAGNESIUM/SIMETH (MAALOX MAX) 30 ML UDC PO PRN (13:00)
[2018-02-15] MEDS ORDERED: MAGNESIUM HYDROXIDE SUSP 30 ML UDC PO PRN (13:00)
[2018-02-15] MEDS ORDERED: SILVER SULFADIAZINE 1% CR 50 GM JAR EXT PRN (13:00)
[2018-02-15] MEDS ORDERED: GLUCOSE 40% GEL 15 GM TUBE PO PRN (13:00)
[2018-02-15] MEDS ORDERED: GLUCAGON FOR INJ 1 MG VIAL SQ PRN (13:00)
--- NOTE | 2018-02-15 13:50 | DIAGNOSTIC IMAGING REPORT ---
R KNEE 1 OR 2 VIEWS ROUTINE CLINICAL HISTORY: Postoperative evaluation. Right knee degenerative joint disease. COMPARISON: Right knee radiographs February 12, 2018 FINDINGS: Alignment of the total right knee arthroplasty is anatomic. There is no periprosthetic fracture or unexpected radiopaque foreign body. Skin goyo are present. IMPRESSION: Expected findings following total right knee arthroplasty. Electronically signed by: Sunny Seth M.D. 02/15/2018 1:49 PM Dictated Date/Time: 02/15/2018 1:48 PM
--- NOTE | 2018-02-15 14:14 | Anesthesiology Progress Note ---
Anesthesia Post Op Note Date & Time Feb 15, 2018 at 14:13 Vital Signs Pain Intensity: 0 Vital Signs Past 12 Hours Date Time Temp Pulse Resp B/P (MAP) Pulse Ox O2 Delivery O2 Flow Rate FiO2 02/15/18 14:11 116/67 02/15/18 14:07 80 17 02/15/18 14:07 80 17 95 02/15/18 14:06 116/63 02/15/18 14:02 80 18 96 02/15/18 14:02 80 18 02/15/18 14:01 80 20 116/67 97 02/15/18 14:01 80 20 02/15/18 13:56 84 16 109/70 95 02/15/18 13:56 83 16 02/15/18 13:51 78 16 114/66 96 02/15/18 13:51 77 16 02/15/18 13:46 77 17 02/15/18 13:46 77 17 117/72 96 02/15/18 13:41 77 22 02/15/18 13:41 78 22 123/73 98 02/15/18 13:36 76 22 112/66 97 02/15/18 13:36 76 22 02/15/18 13:31 77 21 122/67 96 02/15/18 13:31 78 21 02/15/18 13:30 76 18 02/15/18 13:30 76 18 99 02/15/18 13:26 120/74 02/15/18 13:25 76 18 100 02/15/18 13:25 76 18 02/15/18 13:21 123/69 02/15/18 13:20 76 20 100 02/15/18 13:20 77 20 02/15/18 13:16 114/70 02/15/18 13:15 78 17 100 02/15/18 13:15 78 17 02/15/18 13:11 117/70 02/15/18 13:10 81 18 02/15/18 13:10 81 18 100 02/15/18 13:06 109/65 02/15/18 13:05 80 27 02/15/18 13:05 80 27 100 02/15/18 13:05 36.3 78 18 109/65 (74) 100 Room Air 10 02/15/18 09:40 36.4 9 18 165/99 96 Room Air Notes Mental Status: alert / awake / arousable, participated in evaluation Nausea / Vomiting: adequately controlled Pain: adequately controlled Airway Patency, RR, SpO2: stable & adequate BP & HR: stable & adequate Hydration State: stable & adequate Neuraxial Anesthesia: was administered, sensory block is resolving Anesthetic Complications: no major complications apparent
[2018-02-15] MEDS ORDERED: NURSING VERBAL MED ORDER ONE (15:30)
[2018-02-15] MEDS ORDERED: RESTASIS: ORDER AWAITING ACTION SCH (16:00)
[2018-02-15] MEDS: CHECK SCOPOLAMINE PATCH PLACEMENT SCH (16:13)
[2018-02-15] MEDS: MoRPHine SULFATE 2 MG/ML CARP IV PRN ×2 (16:14→17:50)
[2018-02-15] MEDS: OXYCODONE HCL IR 5 MG TAB (IMMEDIATE RELEASE) PO PRN ×2 (16:59→21:14)
[2018-02-15 17:41] LABS: CREATININE 0.71 mg/dl (0.60-1.20)
[2018-02-15] MEDS: SPIRONOLACTONE/HCTZ 25-25 PO SCH (17:54)
[2018-02-15] MEDS: FERROUS GLUCONATE 324 MG TAB PO SCH (17:54)
[2018-02-15] MEDS: INSULIN ASPART 100 UNITS/ML 3 ML PEN SC SCH ×2 (17:59→21:35)
[2018-02-15] MEDS: KETOROLAC TROMETHAMINE 30 MG/ML VIAL IV. SCH (18:00)
[2018-02-15] MEDS ORDERED: TRANEXAMIC ACID INJ 1,000 MG in SODIUM CHLORIDE 0.9% 100ML 100 ML IV SCH (19:00)
--- NOTE | 2018-02-15 19:21 | OPERATIVE REPORT ---
DATE OF OPERATION: 02/15/2018 SURGEON: Yusuf Ann MD. SLITTER OPERATOR: SAYRA Toscano. PREOPERATIVE DIAGNOSIS: Right knee degenerative joint disease. POSTOPERATIVE DIAGNOSIS: Right knee degenerative joint disease. PROCEDURE PERFORMED: Right cemented posterior stabilized total knee arthroplasty. COMPLICATIONS: None. ESTIMATED BLOOD LOSS: 50 mL. FLUID REPLACEMENT: 1000 mL plus crystalloid fluid replacement. TOURNIQUET TIME: 50 minutes at 300 mmHg. ANESTHESIA: Spinal with adductor canal block. DRAINS: None. SPECIMENS: Right knee sent for pathology. OPERATIVE INDICATIONS: Patient is a 57-year-old female who has had a long history of bilateral knee pain and discomfort that has become unresponsive to conservative treatment. She really had an arthritic metabolic syndrome with severe obesity as well. She has been through extensive conservative treatment over the past 10 years which has been unsuccessful. She underwent a left knee replacement several months ago and has done extremely well and had been additionally elected to proceed with right total knee arthroplasty. OPERATIVE FINDINGS: Operative findings revealed advanced right knee DJD. She had extensive grade 4 changes of medial femoral condyle and medial tibial plateau as well as the trochlea. The lateral compartment was fairly well preserved. She had a large knee joint effusion. She had about a 10-degree flexion contracture. OPERATIVE IMPLANTS: Operative implants consisted of: 1. A Biomet size 65 right posterior stabilized femoral component. 2. Biomet size 67 tibial tray. 3. A 12-mm posterior stabilized polyethylene insert. 4. A 28 x 8 all poly patella. OPERATIVE PROCEDURE: Patient taken to the operating room, identified and placed on the operative table in supine position. All contact areas were appropriately padded. IV antibiotics were provided by the anesthesia team. A spinal anesthetic and adductor canal block had been provided in the holding area. Stone catheter was placed in sterile fashion. Right thigh tourniquet was then placed and right lower extremity was then prepped and draped in usual sterile fashion. The right leg was elevated and exsanguinated with Esmarch and tourniquet was placed at 300 mmHg. An anterior approach to the right knee was then performed through a longitudinal incision centered over the patella. Sharp dissection was carried out through the subcutaneous tissues down to the level of the extensor mechanism. A medial jperipatella arthrotomy was carried out medially. The fat pad was resected from beneath the patellar tendon. Lateral patellofemoral ligament was released. The patella was everted and the knee was flexed. The osteophytes were taken off the distal femur. The ACL and PCL were then released from the distal femur and the tibia subluxated anteriorly. The external tibial alignment jig was then placed in the anterior face of the tibia and adjusted 16 mm medially. Proximal tibial cut was made to remove about 2 mm of bone from most deficient aspect of medial tibial plateau. Some osteophytes were taken off medial and posteromedially. Tibia sized to a size 67. Attention was then drawn to the femur. The distal femur was entered with a sharp drill bit. Intramedullary canal was suctioned. A right 5 degree valgus cutting guide was placed. Distal femoral cutting block was pinned in place. Distal femoral cut was made to take an additional 3 mm of bone off the distal femur. The femur was then sized to a size 65. I downsized this almost entire size due to the narrow medial size lateral dimensions. AP cutting block was pinned parallel to the epicondylar axis, which was 3 degrees of external rotation. The anterior cut, anterior chamfer cut, posterior cut, posterior chamfer cuts were made. Box cutting guide was placed and adjusted slightly lateral and the box cut was made. The knee was flexed. The remnants of the medial and lateral menisci were excised. The osteophytes were taken off the posterior aspect of the femur. A trial femoral component was placed. Tibial tray was pinned in maximum external rotation and drill and stem punch were used to create defect in proximal tibia for the tibial tray. The knee was then trialed and a 12 mm insert fit most appropriately. Attention was then drawn to the patella. The patella was cleaned of all soft tissues. Patellar thickness measured 22 and was cut down to 13. It was sized to a size 28 patella. Lug holes were drilled for a 28 patella. Lateral osteophyte was removed. Patella button was placed. Knee was taken through range of motion and the patella tracked nicely with no thumbs test. Attention was then drawn toward placement of the permanent components. All trial components were removed. A bone plug was placed in the distal femur to limit blood loss. A double batch of Palacos G cement was mixed. A right size 65 posterior stabilized femoral component, size 67 tibial tray, a 12 mm posterior stabilized polyethylene insert, and a 28 x 8 all poly patella then cemented in place. Knee was brought out into full extension until cement hardened. A final cement check was then performed. Pericapsular tissues were injected with a total of 100 mL of a combination of 20 mL of Exparel, 30 mL of normal saline, 50 mL of 0.25% Marcaine with epinephrine. The patient did receive 1 gram of tranexamic acid. The tourniquet was then let down for final tourniquet time of 50 minutes. Hemostasis was assured with use of electrocautery. The extensor mechanism was then closed with a combination of #1 PDS suture and #1 Vicryl suture in a [id number] fashion. Extensor mechanism was checked and found to be intact. The subcutaneous tissues were then closed with 2-0 Dexon suture in buried interrupted fashion. Skin was closed with skin goyo. Leg was then cleaned and dried and a sterile dressing of Xeroform, 4 x 4, sterile cast padding and Kd bandage were applied. Patient was then transferred to the recovery room in stable condition. The patient tolerated the procedure with no complications. All needle and sponge counts were correct at the end of the operation. I attest to the content of the Intraoperative Record and any orders documented therein. Any exceptions are noted below. ANID
[2018-02-15] MEDS: CEFAZOLIN IV 2,000 MG in SYRINGE 0 ML IV SCH (19:23)
[2018-02-15] MEDS ORDERED: LACTOBACILLUS ACIDOPHILUS (FLORANEX) TAB PO SCH (21:00)
[2018-02-15] MEDS ORDERED: FERROUS SULFATE 325 MG TAB PO SCH (21:00)
[2018-02-15] MEDS: CycloSPORINE 0.05% 0.4 ML 30 UDV/BOX OP SCH (21:11)
[2018-02-15] MEDS: SODIUM CHLORIDE 0.9% 1000ML 1,000 ML IV SCH (21:11)
[2018-02-15] MEDS: SENNA 8.6 MG TAB PO SCH (21:12)
[2018-02-15] MEDS: DOCUSATE SODIUM 100 MG CAP PO SCH (21:12)
[2018-02-15] MEDS: TAPENTADOL ER 50 MG TABCR PO SCH (21:13)
[2018-02-15] MEDS: ASPIRIN 81 MG ECTAB PO SCH (21:13)
[2018-02-15] MEDS: ACETAMINOPHEN 500 MG TAB PO SCH (21:15)
[2018-02-15] MEDS: PROBIOTIC PO SCH (21:15)
[2018-02-16] MEDS: KETOROLAC TROMETHAMINE 30 MG/ML VIAL IV. SCH ×5 (00:53→23:06)
[2018-02-16] MEDS: CEFAZOLIN IV 2,000 MG in SYRINGE 0 ML IV SCH (04:06)
[2018-02-16] MEDS: SODIUM CHLORIDE 0.9% 1000ML 1,000 ML IV SCH ×2 (04:06→12:30)
[2018-02-16 04:07] VITALS: BP 118/78; PULSE 86; TEMP 36.5; O2SAT 96
[2018-02-16] MEDS: LEVOTHYROXINE SODIUM TAB 200 MCG, LEVOTHYROXINE SODIUM TAB 25 MCG PO SCH ×2 (04:07)
[2018-02-16 05:46] LABS: HEMATOCRIT 29.6 % (37-47); HEMOGLOBIN 9.8 g/dL (12.0-16.0); MEAN CELL VOLUME 85.5 fL (80-100); MEAN CORPUSCULAR HEMOGLOBIN 28.3 pg (25-34); MEAN CORPUSCULAR HGB CONC 33.1 g/dl (32-36); MEAN PLATELET VOLUME 9.2 fL (7.4-10.4); PLATELET COUNT 259 K/uL (130-400); RED CELL DISTRIBUTION WIDTH CV 13.9 % (11.5-14.5); RED CELL DISTRIBUTION WIDTH SD 42.9 fL (36.4-46.3)
[2018-02-16] MEDS: ACETAMINOPHEN 500 MG TAB PO SCH ×3 (05:59→21:13)
[2018-02-16 06:24] LABS: CALCIUM 8.3 mg/dl (8.5-10.1); CREATININE 0.8 mg/dl (0.60-1.20); POTASSIUM 3.9 mmol/L (3.5-5.1)
[2018-02-16 07:14] VITALS: BP 122/79; PULSE 86; TEMP 36.8; O2SAT 93
[2018-02-16] MEDS: CAPTOPRIL 25 MG TAB PO SCH (07:16)
[2018-02-16] MEDS: CHECK SCOPOLAMINE PATCH PLACEMENT SCH ×3 (07:16→16:18)
[2018-02-16] MEDS: OXYCODONE HCL IR 5 MG TAB (IMMEDIATE RELEASE) PO PRN ×3 (08:54→20:27)
[2018-02-16] MEDS: CHOLECALCIFEROL 1000 INTER.UNIT TAB PO SCH (08:56)
[2018-02-16] MEDS: MULTIVITAMIN TAB PO SCH (08:56)
[2018-02-16] MEDS: ASPIRIN 81 MG ECTAB PO SCH ×2 (08:56→20:26)
[2018-02-16] MEDS: PANTOprazole SOD 40 MG TAB PO SCH (08:56)
[2018-02-16] MEDS: DOCUSATE SODIUM 100 MG CAP PO SCH ×2 (08:57→20:26)
[2018-02-16] MEDS: SPIRONOLACTONE/HCTZ 25-25 PO SCH ×2 (08:57→18:13)
[2018-02-16] MEDS: FERROUS GLUCONATE 324 MG TAB PO SCH ×3 (08:57→18:14)
[2018-02-16] MEDS: TAPENTADOL ER 50 MG TABCR PO SCH ×2 (08:58→20:27)
[2018-02-16] MEDS: CycloSPORINE 0.05% 0.4 ML 30 UDV/BOX OP SCH ×2 (08:59→20:26)
[2018-02-16] MEDS: PROBIOTIC PO SCH ×2 (08:59→20:27)
[2018-02-16] MEDS ORDERED: LEVOTHYROXINE 200 MCG TAB PO SCH (09:00)
[2018-02-16] MEDS ORDERED: PROBIOTIC PO SCH (09:00)
[2018-02-16] MEDS ORDERED: NON-FORMULARY MEDICATION (Probiotic Product (Probiotic) 1 TAB) PO SCH (09:00)
[2018-02-16] MEDS: INSULIN ASPART 100 UNITS/ML 3 ML PEN SC SCH ×4 (09:01→21:08)
[2018-02-16 12:15] VITALS: BP 129/81; PULSE 89; TEMP 36.8; O2SAT 98
--- NOTE | 2018-02-16 12:42 | PROGRESS NOTE ---
DATE: 02/16/2018 SUBJECTIVE: A 57-year-old white female postop day 1 from right knee replacement. She is doing pretty well this morning. Pretty painful night last night. He got some pain medicine and doing better. No chest pain, no shortness of breath. Not feeling dizzy or lightheaded. PHYSICAL EXAMINATION: VITAL SIGNS: Temperature 36.8. Stable. GENERAL: Exam shows a pleasant middle-aged female. Sitting up in bed, looks pretty comfortable. She is using her CPAP machine. EXTREMITIES: Examination of the right leg reveals the dressing to be clean, dry, and intact. She can dorsiflex and plantarflex her foot appropriately. She is neurologically intact. Good distal pulse. LABORATORY DATA: Hemoglobin 9.8, hematocrit 29.6. Electrolytes are stable. ASSESSMENT: A 57-year-old white female postop day 1 from right knee replacement, doing reasonably well. Pain is better controlled. PLAN: 1. DVT prophylaxis including thigh-high TEDs, SCDs, and aspirin twice a day. 2. PT/OT. Weight bear as tolerated. Right total knee protocol. 3. Pain control, doing reasonably well with current pain regimen. 4. Disposition: Plan to discharge to home. She is going to do outpatient therapy once adequately recovered.
[2018-02-16 14:58] VITALS: BP 149/84; PULSE 97; TEMP 36.7; O2SAT 96
[2018-02-16] MEDS ORDERED: RXC5 PO (20:59)
[2018-02-16] MEDS ORDERED: FRRS300 PO (20:59)
[2018-02-16] MEDS ORDERED: ACET-24 PO (20:59)
[2018-02-16] MEDS ORDERED: ASPI-320 PO (20:59)
--- NOTE | 2018-02-16 21:01 | Discharge Instructions ---
Discharge Instructions Date of Service Feb 16, 2018. Admission Reason for Admission: Right Knee Degenerative Joint Disease Discharge Discharge Diagnosis / Problem: Right Knee REplacement Discharge Goals Goal(s): Decrease discomfort, Improve function, Increase independence, Improve disease control, Therapeutic intervention Activity Recommendations Activity Limitations: per Instructions/Follow-up section Weightbearing Status: Right weightbearing . Instructions / Follow-Up Instructions / Follow-Up ACTIVITY RECOMMENDATIONS: Physical Therapy: * You will go to physical therapy three times each week for four to six weeks after your surgery in order to regain your knee range of motion and to retrain your knee to work properly. * It is just as important to make sure you are getting your knee perfectly straight as it is to regain your knee bend. * Taking a pain pill an hour before therapy can help you have a more productive and comfortable therapy session. Home Exercise: * You were shown a series of exercises (heel props, heel slides, etc.) in the hospital. Do these exercises three to four times each day including the exercises you were shown in physical therapy. Walking: * Get up and walk several times each day. For the first four weeks, try not to stand or walk for more than one hour at a time. If you do stand or walk for more than one hour, you will not hurt anything, but your knee and leg will likely swell. * As you feel comfortable, you may change from the walker or crutches to a cane and then to independent walking. MEDICATIONS: New Medicine: * You will likely be taking one or more of these medications: 1. Oxycodone - A quick and shorter-acting pain medication. Take one to two tablets every four to six hours to lessen your pain. 2. Iron Sulfate - Take two times each day for the month after surgery to help you replace the blood lost during surgery. 3. Aspirin - Thins your blood to lessen the chance of forming a blood clot. * The most common side effects of pain medicine and iron are nausea and constipation. If nausea or constipation is too much of a problem or if you have any questions about your new medicines or doses, call [facility] at . We will try to help you manage these issues. VERY IMPORTANT TO READ AND REVIEW" Pain: * The immediate post-operative period after knee replacement surgery is often quite painful. * You are given a prescription for pain medicine. You should take it, as directed, when you need it, especially before physical therapy and before going to bed. Pain that interferes with sleep is very common and can last several months. * You will likely need pain medicine for the first four to six weeks. It will not stop all of the pain. The pain will lessen and as you feel better, you may change to milder pain medicine such as Tylenol. * The most common side effects of pain medicine are nausea and constipation, so don't take more than you need. SPECIAL CARE INSTRUCTIONS: TEDs/Elastic Stockings: * The white elastic stockings help limit swelling and prevent blood clots from forming in your legs. The more you wear them, the more they work. * Wear them for six weeks after knee replacement surgery and four weeks after partial knee replacement. Prevention of Infection: * Take antibiotics one hour before any dental cleaning, dental work, urological procedure, gastrointestinal procedure or any invasive surgery in order to prevent your new joint from getting infected. * You may get the antibiotics from the doctor performing the procedure or you may call our office at before and we will call in a prescription to the pharmacy of your choice. Things to Watch For: * Drainage from the incision site that occurs more than one week after your surgery. * Severely increased knee/leg pain or swelling. * Increased redness at the incision site. * Fever above 102 degrees Fahrenheit. * Unusual chest pain or shortness of breath. * Unusual pain or burning with urination. Call [facility] at with any of the above problems or if you have any questions about your medicines or recovery. FOLLOW UP VISIT: Make an appointment to see your doctor for approximately two weeks after surgery for a progress check and staple removal by calling the office at . Current Hospital Diet Patient's current hospital diet: Diabetes Type 2 Diet Discharge Diet Recommended Diet: Diabetes Type 2 Diet Procedures Procedures Performed: Right total knee arthroplasty Pending Studies Studies pending at discharge: no Medical Emergencies . Who to Call and When: Medical Emergencies: If at any time you feel your situation is an emergency, please call 121 immediately. . Non-Emergent Contact Non-Emergency issues call your: Surgeon . "Provider Documentation" section prepared by Yusuf Ann. .
[2018-02-16] MEDS: SENNA 8.6 MG TAB PO SCH (21:08)
[2018-02-16 23:06] VITALS: BP 150/84; PULSE 96; TEMP 36.9; O2SAT 96
[2018-02-17] MEDS: CHECK SCOPOLAMINE PATCH PLACEMENT SCH ×2 (00:13→07:36)
[2018-02-17] MEDS: LEVOTHYROXINE SODIUM TAB 200 MCG, LEVOTHYROXINE SODIUM TAB 25 MCG PO SCH ×2 (05:30)
[2018-02-17] MEDS: ACETAMINOPHEN 500 MG TAB PO SCH ×2 (05:30→14:13)
[2018-02-17] MEDS: KETOROLAC TROMETHAMINE 30 MG/ML VIAL IV. SCH ×2 (05:33→12:45)
[2018-02-17 06:15] VITALS: BP 130/83; PULSE 93; TEMP 36.7; O2SAT 95
[2018-02-17] MEDS: FERROUS GLUCONATE 324 MG TAB PO SCH ×2 (07:39→12:40)
[2018-02-17] MEDS: CycloSPORINE 0.05% 0.4 ML 30 UDV/BOX OP SCH (07:40)
[2018-02-17] MEDS: PANTOprazole SOD 40 MG TAB PO SCH (07:40)
[2018-02-17] MEDS: CAPTOPRIL 25 MG TAB PO SCH (07:40)
[2018-02-17] MEDS: CHOLECALCIFEROL 1000 INTER.UNIT TAB PO SCH (07:40)
[2018-02-17] MEDS: MULTIVITAMIN TAB PO SCH (07:40)
[2018-02-17] MEDS: PROBIOTIC PO SCH (07:41)
[2018-02-17] MEDS: INSULIN ASPART 100 UNITS/ML 3 ML PEN SC SCH ×2 (07:47→12:45)
[2018-02-17] MEDS: TAPENTADOL ER 50 MG TABCR PO SCH (07:48)
[2018-02-17] MEDS: OXYCODONE HCL IR 5 MG TAB (IMMEDIATE RELEASE) PO PRN ×2 (07:48→14:42)
[2018-02-17] MEDS: ASPIRIN 81 MG ECTAB PO SCH (08:50)
[2018-02-17] MEDS: DOCUSATE SODIUM 100 MG CAP PO SCH (08:50)
[2018-02-17] MEDS: SPIRONOLACTONE/HCTZ 25-25 PO SCH (08:50)
--- NOTE | 2018-02-17 09:31 | PROGRESS NOTE ---
DATE: 02/17/2018 SUBJECTIVE: A 57-year-old white female postop day 2 from a right knee replacement. She is doing pretty well. Pretty painful at times. Feels like this knee has been more painful than her previous one. Pain medicine does work. Therapy went pretty well. She has been able to move her leg better than her last time. No chest pain or shortness of breath. Not feeling dizzy or lightheaded. OBJECTIVE: VITAL SIGNS: Temperature is 36.7. Vital signs stable. GENERAL: Physical examination shows a pleasant, middle-aged female. She is sitting up in bed, looks reasonably comfortable. EXTREMITIES: Examination of the right leg reveals the leg to be well aligned. Dressing is in place. Just a slight bit of bloody drainage. Calf is soft and supple. She is neurologically intact. ASSESSMENT: A 57-year-old white female postop day 2 from right knee replacement, doing reasonably well. Some pain but not out of the ordinary. She is neurologically intact. PLAN: 1. DVT prophylaxis including thigh-high TEDs, SCDs, and aspirin twice a day. 2. PT/OT. Weight bear as tolerated. Right total knee protocol. 3. Pain control. Doing reasonably well with current pain regimen. 4. Disposition: Plan to discharge to home today and she is going to do outpatient therapy locally.
[2018-02-17 10:52] VITALS: BP 130/83; PULSE 93; TEMP 36.7; O2SAT 95
== END 2018-02-17 15:03 | disposition home or self-care (01) | DRG 470 ==
LOC: C.ACU 09:08 → C.3E 13:04 → ENRESERV 14:36
PROVIDERS: ADMIT Orthopaedic Surgery Sports Medicine; ATTEND Orthopaedic Surgery Sports Medicine
PROC: 0SRC0J9 Replacement of Right Knee Joint with Synthetic Substitute, Cemented, Open Approach (ICD-10-PCS; principal; 2018-02-15 11:00)
DX: M17.11 Unilateral primary osteoarthritis, right knee (principal); Z68.41 Body mass index [BMI] 40.0-44.9, adult; I10 Essential (primary) hypertension; G47.30 Sleep apnea, unspecified; E03.9 Hypothyroidism, unspecified; E11.9 Type 2 diabetes mellitus without complications; E88.81 Metabolic syndrome and other insulin resistance; E66.9 Obesity, unspecified; Z79.899 Other long term (current) drug therapy; Z79.84 Long term (current) use of oral hypoglycemic drugs; Z96.652 Presence of left artificial knee joint; Z80.0 Family history of malignant neoplasm of digestive organs; Z80.3 Family history of malignant neoplasm of breast